=== PATIENT | female | born 1950 | race Caucasian/White ===

== ENCOUNTER → 2017-02-10 | Outpatient (CLI) | payer OTHER | END | disposition home or self-care (01) | DX: R26.2 Difficulty in walking, not elsewhere classified (principal); M25.551 Pain in right hip; M25.651 Stiffness of right hip, not elsewhere classified; M62.81 Muscle weakness (generalized); M16.11 Unilateral primary osteoarthritis, right hip | CPT/HCPCS: 97161 GP; 97165 GO; 97530 GP; 97537 GO ==

== ENCOUNTER 2017-02-23 22:01 | Inpatient (IN) | payer OTHER ==
[~2017-02-23] VITALS: Ht 167.6 cm; Wt 96.3 kg
[~2017-02-23 22:01] MED LIST: ASPIRIN81 M2 PO; CHOLEST OFF PL450 MG PO; HYDROCODON-ACE1 EAC7 PO; MAGNESIUM400 M1 PO; MULTIPLE VITAM1 EACH PO; SYNTHROID75 MCG PO; TURMERIC500 M2 PO; TYLENOL EXTRA500 MG PO; VOLTAREN75 MG PO
[2017-02-24] MEDS ORDERED: NORCO 10/3251 TABLET PO (05:54)
[2017-02-24 05:56] VITALS: BP 164/94
[2017-02-24 10:20] LABS: MCV 98.3 FL (83-99)
[2017-02-24 14:27] VITALS: BP 123/62
[2017-02-24 14:44] VITALS: BP 123/62
[2017-02-24 20:05] VITALS: BP 111/58
[2017-02-25] VITALS (8 sets, daily range): BP systolic 93–118; BP diastolic 52–64
[2017-02-25 11:27] LABS: HEMATOCRIT 32.9 % (36.0-46.0); MCV 99.1 FL (83-99)
[2017-02-26 08:36] VITALS: BP 98/54
[2017-02-26] MEDS ORDERED: SENNA PLUS TAB1 EACH PO (09:00)
[2017-02-26] MEDS ORDERED: ENDOCET 5-3251 EACH PO (09:01)
[2017-02-26] MEDS ORDERED: ELIQUIS2.5 MG PO (09:01)
[2017-02-26 11:48] VITALS: BP 107/60
== END 2017-02-26 17:12 | disposition home health service (06) | DRG 470 ==
LOC: ENRESERV 22:01 → 2SOUTH 02-24 05:24 → CANRESERV 02-24 13:06 → ENRESERV 02-24 13:06 → 3EAST 02-24 14:10 → 2SOUTH 02-24 15:32 → 3EAST 02-26 17:12
PROVIDERS: Orthopaedic Surgery
PROC: 0SR901A Replacement of Right Hip Joint with Metal Synthetic Substitute, Uncemented, Open Approach (ICD-10-PCS; principal; 2017-02-24)
DX: M16.11 Unilateral primary osteoarthritis, right hip (principal); E03.9 Hypothyroidism, unspecified; Z91.81 History of falling; E66.3 Overweight; Z68.34 Body mass index [BMI] 34.0-34.9, adult; I10 Essential (primary) hypertension; E78.1 Pure hyperglyceridemia; Z87.891 Personal history of nicotine dependence; Z79.82 Long term (current) use of aspirin; Z96.651 Presence of right artificial knee joint
CPT/HCPCS: 85014; 85018; J0690; J2250; J2405; J3010; J7050; J7120; Q0175